=== PATIENT | male | born 1995 | race Caucasian/White ===

== ENCOUNTER 2020-06-07 09:35 | Emergency (ER) | payer MEDICAID, OTHER ==
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
[2020-06-07] MEDS ORDERED: Ketorolac 30 MG/ML SDV IVPUSH ONE (10:54)
[2020-06-07] MEDS ORDERED: Acetaminophen 500 MG Tab PO ONE (10:54)
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
== END 2020-06-07 11:22 | disposition home or self-care (01) ==
LOC: JP.ED 09:35
DX: S02.2XXB Fracture of nasal bones, initial encounter for open fracture (principal); S29.012A Strain of muscle and tendon of back wall of thorax, initial encounter; S00.01XA Abrasion of scalp, initial encounter; Z72.0 Tobacco use; V58.5XXA Driver of pick-up truck or van injured in noncollision transport accident in traffic accident, initial encounter; Y92.410 Unspecified street and highway as the place of occurrence of the external cause
CPT/HCPCS: 70450; 70486; 96374; 99283; 99284; A9270; J1885